=== PATIENT | male | born 1985 | race Caucasian/White ===

== ENCOUNTER 2018-09-06 00:45 | Emergency (ER) | payer MEDICAID ==
--- NOTE | 2018-09-06 01:14 | EDM.PDOCBH ---
ED HPI GENERAL MEDICAL PROBLEM - General Chief Complaint: Behavioral/Psych Stated Complaint: Anxiety, Panic attack Time Seen by Provider: 09/06/18 00:48 Source of Information: Reports: Patient, Family, RN, RN Notes Reviewed History Limitations: Reports: No Limitations - History of Present Illness INITIAL COMMENTS - FREE TEXT/NARRATIVE: Patient is brought to the ED at [facility] for the treatment of uncontrolled anxiety. Patient has a long standing history of mental health issues and current psychiatric treatment. Patient and friends states earlier tonight the patient started getting agitated and hyperventilating. Patient is not sure of what triggered the panick attack. Patient is currently taking Amitriptyline, Clonidine, and recently started taking Seroquel. Patient has a history of Depression and anxiety, and sleep disturbance. Patient' s PCP is Dr. Heath and patient also has Dr. Rose for psychiatry. No previous psych hospitalizations. Patient denies any current homicidal or suicidal thoughts/ideations. Patient felt he's was going to "loose control" prior to presentation. Patient denies any illegal drug use. Onset: Today, Sudden Onset Date: 09/05/18 - Related Data Allergies Allergy/AdvReac Type Severity Reaction Status Date / Time hydrocodone Allergy Hives Verified 09/06/18 01:17 Past Medical History Psychiatric History: Reports: Anxiety, Depression - Past Surgical History Musculoskeletal Surgical History: Reports: Arthroscopic Knee (Right ACL), Arthroscopic Procedure (Right ACL) Social & Family History - Family History Family Medical History: Noncontributory - Tobacco Use Smoking Status *Q: Current Every Day Smoker Tobacco Use Within Last Twelve Months: Cigarettes Used Tobacco, but Quit: No Smoking Cessation Information Provided To Patient: Patient Refused - Caffeine Use Caffeine Use: Reports: Energy Drinks, Soda - Alcohol Use Alcohol Use History: No Alcohol Use in Last Twelve Months: No - Recreational Drug Use Recreational Drug Use: No Drug Use in Last 12 Months: No - Living Situation & Occupation Living situation: Reports: Single, with Family Occupation: Employed ED ROS GENERAL - Review of Systems Review Of Systems: See Below Constitutional: Denies: Fever, Chills Respiratory: Denies: Shortness of Breath, Cough Cardiovascular: Denies: Chest Pain, Palpitations Skin: Reports: No Symptoms Neurological: Reports: No Symptoms Psychiatric: Reports: Agitation, Anxiety. Denies: Homicidal Ideation, Suicidal Ideation ED EXAM, BEHAVIORAL HEALTH - Physical Exam Exam: See Below Exam Limited By: No Limitations General Appearance: Alert, Anxious Respiratory/Chest: No Respiratory Distress, Lungs Clear, Normal Breath Sounds Cardiovascular: Normal Peripheral Pulses, Regular Rate, Rhythm Neurological: Alert, Oriented x 3 Psychiatric: Agitated, Pressured Speech, Paranoid Thoughts. No: Suicidal Plan, Suicidal Thoughts Skin Exam: Warm, Dry, Intact, Normal color COURSE, BEHAVIORAL HEALTH COMP - Course Orders, Labs, Meds: Medications Discontinued Medications Generic Name Dose Route Start Last Admin Trade Name Wyatt PRN Reason Stop Dose Admin Chlorpromazine HCl 50 mg 09/06/18 01:17 Thorazine IM 09/06/18 01:18 ONETIME ONE Departure - Departure Time of Disposition: 01:34 Disposition: Home, Self-Care 01 Condition: Good Clinical Impression: Panic attack due to exceptional stress - Discharge Information *PRESCRIPTION DRUG MONITORING PROGRAM REVIEWED*: Not Applicable *COPY OF PRESCRIPTION DRUG MONITORING REPORT IN PATIENT AMY: Not Applicable Instructions: Panic Attack Referrals: Miguel Heath MD [Physician] - Forms: ED Department Discharge Additional Instructions: 1. Stay well hydrated and rest 2. Continue taking your home medications 3. Keep appointment with Dr. Heath today 4. Call with any questions or concerns - Problem List & Annotations (1) Depression SNOMED Code(s): 25442216 Code(s): F32.9 - MAJOR DEPRESSIVE DISORDER, SINGLE EPISODE, UNSPECIFIED Status: Acute Qualifiers: Depression Type: major depressive disorder Major depression recurrence: recurrent Active/Remission status: currently active Major depression episode severity: mild Qualified Code(s): F33.0 - Major depressive disorder, recurrent, mild (2) Anxiety SNOMED Code(s): 90621537 Code(s): F41.9 - ANXIETY DISORDER, UNSPECIFIED Status: Acute - Problem List Review Problem List Initiated/Reviewed/Updated: Yes - Assessment/Plan Assessment:: Anxiety Agitation Depression Plan: Assessment findings discussed with patient. Patient was given 50 mg of IM Thorazine for his symptoms. This medication relieved his symptoms and he was feeling much better at time of discharge. Recommend keeping appointment this week with Dr. Heath.
== END 2018-09-06 01:52 | disposition home or self-care (01) ==
LOC: VM.ED 00:45
DX: F43.0 Acute stress reaction (principal); F41.9 Anxiety disorder, unspecified; F32.9 Major depressive disorder, single episode, unspecified; F17.210 Nicotine dependence, cigarettes, uncomplicated; Z88.5 Allergy status to narcotic agent
CPT/HCPCS: 96372; 99283; J3230